=== PATIENT | female | born 1945 | race Caucasian/White ===

== ENCOUNTER 2020-06-23 17:44 | Inpatient (IN) ==
[2020-06-23 22:27] LABS: ABG Base Excess -2.8 MMOL/L (-2.5-2.5); ABG HCO3 22.1 MMOL/L (20-26); ABG Oxygen Saturation 97.3 % (95-100); ABG PCO2 36.5 MM HG (35-48); ABG PH 7.385 (7.35-7.45); ABG PO2 95.2 MM HG (80-95); ABG TCO2 20.1 MMOL/L (23-27)
[2020-06-23] MEDS ORDERED: DEXTROSE 50% 25 GM/50 ML VIAL IV PRN (22:38)
[2020-06-23 22:47] LABS: Bacteria,Urine Occasional /HPF (Few); Bilirubin,Urine Negative (Negative); Blood, Urine Moderate mg/dL (Negative); Glucose,Urine (UA) Negative (Negative); Hyaline Casts,Urine 13 /LPF (0-3); Ketones,Urine Negative (Negative); Mucus,Urine Occasional /LPF (Occasional); Nitrite,Urine Negative (Negative); Protein,Urine 100 MG/DL; RBC,Urine 35 /HPF (0-4); Urine Appearance CLEAR (Clear); Urine Color Straw (Yellow); Urine Specific Gravity 1.008 (1.001-1.035); Urine Urobilinogen < 2.0 EU/DL (0.2-1.0); WBC,Urine 5 /HPF (0-6)
[2020-06-23] MEDS: dilTIAZem Drip 125 MG/125 ML PREMIX IV SCH (22:55)
[2020-06-23] MEDS ORDERED: cefTRIAXone 1,000 MG in SYRINGE 1 EACH IV SCH (23:00)
[2020-06-23] MEDS ORDERED: PANTOPRAZOLE 40 MG VIAL IV ONE (23:19)
[2020-06-23] MEDS ORDERED: hydrALAZINE 20 MG/1 ML VIAL IV ONE (23:20)
[2020-06-23] MEDS: SODIUM CHLORIDE 0.9% 1,000 ML IV SCH (23:21)
[2020-06-23] MEDS ORDERED: AZITHROMYCIN INJ 500 MG in SODIUM CHLORIDE 0.9% 250 ML IV SCH (23:30)
[2020-06-23] MEDS ORDERED: MORPHINE 4 MG/1 ML VIAL IV ONE (23:38)
[2020-06-23 23:57] LABS: Basophils % 0.2 % (0.0-0.8); Hematocrit 29.7 VOL% (35.7-47.0); Hemoglobin 9.4 GM/DL (12.0-16.0); Immature Granulocytes % 0.9 %; Immature Granulocytes Absolute 0.14 #; Lymphocytes # 1.4 10*3/uL (1.4-4.0); Lymphocytes % 8.7 % (21.3-54.2); Mean Corpuscular HGB Conc 31.6 GM/DL (32-36); Mean Corpuscular Volume 88.7 FL (87-102); Mean Platelet Volume 10.6 FL (9.6-12.0); Monocytes % 7.4 % (1.7-12.7); NRBC # 0.02 10*3/uL; Neutrophils % 82.8 % (38.7-73.9); Platelet Count 285 T/CUMM (130-400); Red Blood Count 3.35 MC/CUMM (3.8-5.5); Red Cell Distribution Width 15.8 % (9.3-17.3); White Blood Count 16.2 T/CUMM (4-12)
[2020-06-24 00:21] LABS: Albumin 3.6 G/DL (3.4-5.0); Bilirubin,Total 0.4 MG/DL (0.2-1.0); Calcium 9.3 MG/DL (8.5-10.1); Osmolality,Calculated 295.1 MOS/KG (273-304)
[2020-06-24] MEDS: ALBUTEROL/IPRATROPIUM 3 ML NEB RESP TX SCH ×4 (00:48→19:42)
[2020-06-24 02:07] LABS: Basophils % 0.2 % (0.0-0.8); Hematocrit 27.6 VOL% (35.7-47.0); Hemoglobin 8.5 GM/DL (12.0-16.0); Immature Granulocytes % 0.6 %; Immature Granulocytes Absolute 0.08 #; Lymphocytes # 1.2 10*3/uL (1.4-4.0); Lymphocytes % 9.1 % (21.3-54.2); Mean Corpuscular HGB Conc 30.8 GM/DL (32-36); Mean Corpuscular Volume 90.2 FL (87-102); Mean Platelet Volume 10.8 FL (9.6-12.0); NRBC # 0.02 10*3/uL; Neutrophils % 82.1 % (38.7-73.9); Platelet Count 247 T/CUMM (130-400); Red Blood Count 3.06 MC/CUMM (3.8-5.5); Red Cell Distribution Width 15.7 % (9.3-17.3); White Blood Count 12.9 T/CUMM (4-12)
[2020-06-24 02:21] LABS: Albumin 3.2 G/DL (3.4-5.0); Bilirubin,Total 0.4 MG/DL (0.2-1.0); Calcium 8.8 MG/DL (8.5-10.1); Osmolality,Calculated 293.1 MOS/KG (273-304); Total Protein 6.2 G/DL (6.4-8.3)
[2020-06-24] MEDS: dilTIAZem Drip 125 MG/125 ML PREMIX IV SCH (07:00)
[2020-06-24] MEDS: INSULIN LISPRO 100 UNIT/ML SUBCUT SCH ×4 (08:07→20:52)
[2020-06-24] MEDS: SODIUM CHLORIDE 0.9% 1,000 ML IV SCH ×2 (09:15→20:44)
[2020-06-24] MEDS: PANTOPRAZOLE 40 MG VIAL IV SCH (10:30)
[2020-06-24] MEDS ORDERED: DIGOXIN 0.5 MG/2 ML AMP IV ONE ×2 (11:15→12:15)
[2020-06-24] MEDS: APIXABAN 5 MG TABLET PO SCH ×2 (11:40→20:44)
[2020-06-24] MEDS: AZITHROMYCIN 250 MG TABLET PO SCH (11:57)
[2020-06-24] MEDS: DILTIAZEM CD 120 MG CAPSULE PO SCH ×2 (11:57→20:44)
[2020-06-24] MEDS: ONDANSETRON 4 MG/2 ML VIAL IV PRN (13:50)
[2020-06-24] MEDS: MORPHINE 4 MG/1 ML VIAL IV PRN ×3 (13:50→20:47)
[2020-06-24] MEDS: cefTRIAXone 1,000 MG in SYRINGE 1 EACH IV SCH (14:04)
[2020-06-24] MEDS ORDERED: OXYMETAZOLINE 0.05% NASAL SPRAY 15 ML BOTTLE BOTH NARES PRN (17:13)
[2020-06-24] MEDS: diphenhydrAMINE 50 MG/1 ML VIAL IV PRN (20:20)
[2020-06-25] MEDS: MORPHINE 4 MG/1 ML VIAL IV PRN ×4 (02:04→19:30)
[2020-06-25] MEDS: ONDANSETRON 4 MG/2 ML VIAL IV PRN ×3 (02:05→21:13)
[2020-06-25 04:04] LABS: ABG Base Excess -2.3 MMOL/L (-2.5-2.5); ABG HCO3 22.5 MMOL/L (20-26); ABG Oxygen Saturation 98.4 % (95-100); ABG PCO2 51.9 MM HG (35-48); ABG PH 7.285 (7.35-7.45); ABG TCO2 23.1 MMOL/L (23-27); Allen Test Positive; Pt O2 Delivery Device CPAP
[2020-06-25 06:01] LABS: Basophils # 0.1 10*3/uL (0.0-0.2); Basophils % 0.6 % (0.0-0.8); Eosinophils # 0.1 10*3/uL (0.0-0.87); Eosinophils % 0.4 % (0.00-10.9); Hematocrit 31.8 VOL% (35.7-47.0); Hemoglobin 9.5 GM/DL (12.0-16.0); Immature Granulocytes % 0.9 %; Immature Granulocytes Absolute 0.11 #; Lymphocytes # 1.2 10*3/uL (1.4-4.0); Lymphocytes % 9.4 % (21.3-54.2); Mean Corpuscular HGB Conc 29.9 GM/DL (32-36); Mean Corpuscular Volume 93.3 FL (87-102); Monocytes % 6.8 % (1.7-12.7); NRBC # 0.02 10*3/uL; Neutrophils % 81.9 % (38.7-73.9); Platelet Count 269 T/CUMM (130-400); Red Blood Count 3.41 MC/CUMM (3.8-5.5); Red Cell Distribution Width 15.9 % (9.3-17.3); White Blood Count 12.7 T/CUMM (4-12)
[2020-06-25] MEDS: ALBUTEROL/IPRATROPIUM 3 ML NEB RESP TX SCH ×4 (06:05→19:19)
[2020-06-25 06:25] LABS: Calcium 9.3 MG/DL (8.5-10.1); Osmolality,Calculated 290.8 MOS/KG (273-304)
[2020-06-25] MEDS: SODIUM CHLORIDE 0.9% 1,000 ML IV SCH ×3 (07:17→19:59)
[2020-06-25] MEDS: INSULIN LISPRO 100 UNIT/ML SUBCUT SCH ×4 (07:39→21:06)
[2020-06-25] MEDS: DILTIAZEM CD 120 MG CAPSULE PO SCH ×2 (08:05→20:17)
[2020-06-25] MEDS: AZITHROMYCIN 250 MG TABLET PO SCH (08:05)
[2020-06-25] MEDS: APIXABAN 5 MG TABLET PO SCH ×2 (08:05→20:17)
[2020-06-25] MEDS: PANTOPRAZOLE 40 MG VIAL IV SCH (08:08)
[2020-06-25] MEDS ORDERED: carvediloL 6.25 MG TABLET PO SCH (09:00)
[2020-06-25] MEDS: dilTIAZem Drip 125 MG/125 ML PREMIX IV SCH (09:48)
[2020-06-25] MEDS: cefTRIAXone 1,000 MG in SYRINGE 1 EACH IV SCH (13:18)
[2020-06-25] MEDS: diphenhydrAMINE 50 MG/1 ML VIAL IV PRN ×2 (13:37→20:17)
[2020-06-25] MEDS: carvediloL 12.5 MG TABLET PO SCH (20:18)
[2020-06-26] MEDS: dilTIAZem Drip 125 MG/125 ML PREMIX IV SCH (00:42)
[2020-06-26] MEDS: MORPHINE 4 MG/1 ML VIAL IV PRN ×2 (00:42→07:59)
[2020-06-26] MEDS: ALBUTEROL/IPRATROPIUM 3 ML NEB RESP TX SCH ×4 (02:14→19:36)
[2020-06-26] MEDS: diphenhydrAMINE 50 MG/1 ML VIAL IV PRN (02:24)
[2020-06-26] MEDS: ONDANSETRON 4 MG/2 ML VIAL IV PRN (02:24)
[2020-06-26 03:51] LABS: ABG Base Excess -2.2 MMOL/L (-2.5-2.5); ABG HCO3 23.7 MMOL/L (20-26); ABG Oxygen Saturation 90.7 % (95-100); ABG PCO2 45.6 MM HG (35-48); ABG PH 7.333 (7.35-7.45); ABG PO2 62.5 MM HG (80-95); ABG TCO2 25.1 MMOL/L (23-27); Allen Test Positive; Pt O2 Delivery Device CPAP
[2020-06-26 04:20] LABS: Basophils # 0.1 10*3/uL (0.0-0.2); Basophils % 0.6 % (0.0-0.8); Eosinophils # 0.1 10*3/uL (0.0-0.87); Eosinophils % 1.3 % (0.00-10.9); Hematocrit 31.1 VOL% (35.7-47.0); Hemoglobin 9.4 GM/DL (12.0-16.0); Immature Granulocytes % 0.7 %; Immature Granulocytes Absolute 0.07 #; Lymphocytes % 10.2 % (21.3-54.2); Mean Corpuscular HGB Conc 30.2 GM/DL (32-36); Mean Corpuscular Volume 92.6 FL (87-102); Mean Platelet Volume 10.2 FL (9.6-12.0); Monocytes % 5.1 % (1.7-12.7); Neutrophils % 82.1 % (38.7-73.9); Platelet Count 270 T/CUMM (130-400); Red Blood Count 3.36 MC/CUMM (3.8-5.5); Red Cell Distribution Width 15.6 % (9.3-17.3); White Blood Count 9.6 T/CUMM (4-12)
[2020-06-26 04:39] LABS: Albumin 2.6 G/DL (3.4-5.0); Bilirubin,Total 0.4 MG/DL (0.2-1.0); Ferritin 72.4 ng/ml (8-252); Osmolality,Calculated 288.8 MOS/KG (273-304); Total Protein 6.1 G/DL (6.4-8.3)
[2020-06-26] MEDS: APIXABAN 5 MG TABLET PO SCH ×2 (08:01→20:20)
[2020-06-26] MEDS: DILTIAZEM CD 120 MG CAPSULE PO SCH ×2 (08:04→20:20)
[2020-06-26] MEDS: INSULIN LISPRO 100 UNIT/ML SUBCUT SCH ×4 (08:05→21:41)
[2020-06-26] MEDS: AZITHROMYCIN 250 MG TABLET PO SCH (08:05)
[2020-06-26] MEDS: carvediloL 12.5 MG TABLET PO SCH ×2 (08:05→20:20)
[2020-06-26] MEDS: PANTOPRAZOLE 40 MG TABLET PO SCH (08:05)
[2020-06-26] MEDS ORDERED: FUROSEMIDE 40 MG/4 ML VIAL IV ONE (09:29)
[2020-06-26] MEDS: ALPRAZolam 0.25 MG TABLET PO PRN (11:15)
[2020-06-26] MEDS: methylPREDNISolone SOD SUC 40 MG/1 ML VIAL IV SCH ×2 (13:07→20:21)
[2020-06-26] MEDS: cefTRIAXone 1,000 MG in SYRINGE 1 EACH IV SCH (15:30)
[2020-06-26] MEDS ORDERED: hydrALAZINE 20 MG/1 ML VIAL IV PRN (17:10)
[2020-06-26] MEDS: ASCORBIC ACID 500 MG TABLET PO SCH (20:20)
[2020-06-26] MEDS: SODIUM CHLORIDE 0.9% 1,000 ML IV SCH (21:42)
[2020-06-27] MEDS: ALBUTEROL/IPRATROPIUM 3 ML NEB RESP TX SCH ×4 (01:22→19:15)
[2020-06-27 03:27] LABS: Basophils % 0.4 % (0.0-0.8); Hematocrit 32.3 VOL% (35.7-47.0); Hemoglobin 9.9 GM/DL (12.0-16.0); Immature Granulocytes % 0.8 %; Immature Granulocytes Absolute 0.04 #; Lymphocytes # 0.5 10*3/uL (1.4-4.0); Lymphocytes % 9.8 % (21.3-54.2); Mean Corpuscular HGB Conc 30.7 GM/DL (32-36); Mean Corpuscular Volume 89.5 FL (87-102); Mean Platelet Volume 10.4 FL (9.6-12.0); Platelet Count 313 T/CUMM (130-400); Red Blood Count 3.61 MC/CUMM (3.8-5.5); Red Cell Distribution Width 14.8 % (9.3-17.3); White Blood Count 5.2 T/CUMM (4-12)
[2020-06-27 03:45] LABS: Calcium 8.9 MG/DL (8.5-10.1); Osmolality,Calculated 295.1 MOS/KG (273-304)
[2020-06-27] MEDS: ALPRAZolam 0.25 MG TABLET PO PRN ×2 (04:19→20:45)
[2020-06-27] MEDS: methylPREDNISolone SOD SUC 40 MG/1 ML VIAL IV SCH ×2 (04:20→11:01)
[2020-06-27 05:16] LABS: ABG Base Excess -0.7 MMOL/L (-2.5-2.5); ABG HCO3 25.1 MMOL/L (20-26); ABG Oxygen Saturation 89.8 % (95-100); ABG PH 7.354 (7.35-7.45); ABG PO2 62.1 MM HG (80-95); ABG TCO2 26.5 MMOL/L (23-27); Allen Test Positive
[2020-06-27] MEDS: AZITHROMYCIN 250 MG TABLET PO SCH (08:44)
[2020-06-27] MEDS: carvediloL 12.5 MG TABLET PO SCH ×2 (08:44→20:45)
[2020-06-27] MEDS: PANTOPRAZOLE 40 MG TABLET PO SCH (08:44)
[2020-06-27] MEDS: INSULIN LISPRO 100 UNIT/ML SUBCUT SCH ×4 (08:44→21:38)
[2020-06-27] MEDS: ASCORBIC ACID 500 MG TABLET PO SCH ×2 (08:44→20:46)
[2020-06-27] MEDS: APIXABAN 5 MG TABLET PO SCH ×2 (08:44→20:45)
[2020-06-27] MEDS: DILTIAZEM CD 120 MG CAPSULE PO SCH ×2 (08:45→20:46)
[2020-06-27] MEDS ORDERED: DOXEPIN 10 MG PO SCH (09:15)
[2020-06-27] MEDS: SERTRALINE 25 MG TABLET PO SCH (10:57)
[2020-06-27] MEDS: diphenhydrAMINE 50 MG/1 ML VIAL IV PRN (11:07)
[2020-06-27] MEDS: cefTRIAXone 1,000 MG in SYRINGE 1 EACH IV SCH (13:36)
[2020-06-27] MEDS: FUROSEMIDE 40 MG TABLET PO SCH (16:04)
[2020-06-27] MEDS: SODIUM CHLORIDE 0.9% 1,000 ML IV SCH (16:04)
[2020-06-27] MEDS: DONEPEZIL 5 MG TABLET PO SCH (20:45)
[2020-06-28] MEDS: ALBUTEROL/IPRATROPIUM 3 ML NEB RESP TX SCH ×4 (01:07→20:01)
[2020-06-28] MEDS: methylPREDNISolone SOD SUC 40 MG/1 ML VIAL IV SCH ×2 (03:43→16:06)
[2020-06-28 04:49] LABS: Basophils % 0.1 % (0.0-0.8); Hematocrit 30.4 VOL% (35.7-47.0); Hemoglobin 9.6 GM/DL (12.0-16.0); Immature Granulocytes % 0.4 %; Immature Granulocytes Absolute 0.04 #; Lymphocytes # 0.6 10*3/uL (1.4-4.0); Lymphocytes % 6.7 % (21.3-54.2); Mean Corpuscular HGB Conc 31.6 GM/DL (32-36); Mean Corpuscular Volume 88.1 FL (87-102); Mean Platelet Volume 10.4 FL (9.6-12.0); Monocytes % 2.9 % (1.7-12.7); NRBC # 0.02 10*3/uL; Neutrophils % 89.9 % (38.7-73.9); Platelet Count 290 T/CUMM (130-400); Red Blood Count 3.45 MC/CUMM (3.8-5.5); Red Cell Distribution Width 14.7 % (9.3-17.3); White Blood Count 9.3 T/CUMM (4-12)
[2020-06-28 05:20] LABS: Calcium 8.5 MG/DL (8.5-10.1); Osmolality,Calculated 294.3 MOS/KG (273-304)
[2020-06-28] MEDS: INSULIN LISPRO 100 UNIT/ML SUBCUT SCH ×4 (08:48→21:14)
[2020-06-28] MEDS: ASCORBIC ACID 500 MG TABLET PO SCH ×2 (09:07→21:16)
[2020-06-28] MEDS: SERTRALINE 25 MG TABLET PO SCH (09:07)
[2020-06-28] MEDS: APIXABAN 5 MG TABLET PO SCH ×2 (09:08→21:15)
[2020-06-28] MEDS: DILTIAZEM CD 120 MG CAPSULE PO SCH ×2 (09:08→21:15)
[2020-06-28] MEDS: AZITHROMYCIN 250 MG TABLET PO SCH (09:08)
[2020-06-28] MEDS: carvediloL 12.5 MG TABLET PO SCH ×2 (09:08→21:15)
[2020-06-28] MEDS: PANTOPRAZOLE 40 MG TABLET PO SCH (09:08)
[2020-06-28] MEDS: FUROSEMIDE 40 MG TABLET PO SCH ×2 (09:09→16:06)
[2020-06-28] MEDS ORDERED: ISOSORBIDE MONONITRATE 60 MG TABLET PO SCH (10:00)
[2020-06-28] MEDS: cefTRIAXone 1,000 MG in SYRINGE 1 EACH IV SCH (12:18)
[2020-06-28] MEDS: SODIUM CHLORIDE 0.9% 1,000 ML IV SCH (16:06)
[2020-06-28] MEDS: DONEPEZIL 5 MG TABLET PO SCH (21:16)
[2020-06-29] MEDS: ALBUTEROL/IPRATROPIUM 3 ML NEB RESP TX SCH ×4 (01:39→19:18)
[2020-06-29 06:23] LABS: Basophils % 0.1 % (0.0-0.8); Hematocrit 36.7 VOL% (35.7-47.0); Hemoglobin 11.6 GM/DL (12.0-16.0); Immature Granulocytes % 1.2 %; Immature Granulocytes Absolute 0.14 #; Lymphocytes # 0.5 10*3/uL (1.4-4.0); Lymphocytes % 4.6 % (21.3-54.2); Mean Corpuscular HGB Conc 31.6 GM/DL (32-36); Mean Corpuscular Volume 87.2 FL (87-102); Mean Platelet Volume 10.8 FL (9.6-12.0); Monocytes % 2.5 % (1.7-12.7); NRBC # 0.02 10*3/uL; Neutrophils % 91.6 % (38.7-73.9); Platelet Count 364 T/CUMM (130-400); Red Blood Count 4.21 MC/CUMM (3.8-5.5); Red Cell Distribution Width 14.6 % (9.3-17.3); White Blood Count 11.3 T/CUMM (4-12)
[2020-06-29 06:47] LABS: Hypochromasia 1+; Lymphocytes 3 % (20-55); Microcytosis 1+; Ovalocytes Slight; Platelet Estimate Adequate; Segmented Neutrophils 95 % (50-85); Total Cells Counted 100
[2020-06-29 06:50] LABS: Calcium 9.2 MG/DL (8.5-10.1)
[2020-06-29 06:51] LABS: Albumin 2.5 G/DL (3.4-5.0); Bilirubin,Total 0.7 MG/DL (0.2-1.0); Calcium 9.1 MG/DL (8.5-10.1); Total Protein 5.8 G/DL (6.4-8.3)
[2020-06-29] MEDS: APIXABAN 5 MG TABLET PO SCH ×2 (08:49→21:52)
[2020-06-29] MEDS: PANTOPRAZOLE 40 MG TABLET PO SCH (08:49)
[2020-06-29] MEDS: carvediloL 12.5 MG TABLET PO SCH ×2 (08:49→21:52)
[2020-06-29] MEDS: AZITHROMYCIN 250 MG TABLET PO SCH (08:49)
[2020-06-29] MEDS: FUROSEMIDE 40 MG TABLET PO SCH ×2 (08:50→15:48)
[2020-06-29] MEDS: DILTIAZEM CD 120 MG CAPSULE PO SCH ×2 (08:50→21:52)
[2020-06-29] MEDS: SERTRALINE 25 MG TABLET PO SCH (08:50)
[2020-06-29] MEDS: ASCORBIC ACID 500 MG TABLET PO SCH ×2 (08:50→21:52)
[2020-06-29] MEDS: ISOSORBIDE MONONITRATE 60 MG TABLET PO SCH (08:50)
[2020-06-29] MEDS: methylPREDNISolone SOD SUC 40 MG/1 ML VIAL IV SCH ×2 (08:51→21:52)
[2020-06-29] MEDS: INSULIN LISPRO 100 UNIT/ML SUBCUT SCH ×4 (08:55→21:52)
[2020-06-29] MEDS: ONDANSETRON 4 MG/2 ML VIAL IV PRN (09:00)
[2020-06-29] MEDS: cefTRIAXone 1,000 MG in SYRINGE 1 EACH IV SCH (12:30)
[2020-06-29] MEDS: MAGNESIUM HYDROXIDE SUSP 30 ML UDCUP PO PRN (14:22)
[2020-06-29] MEDS: SODIUM CHLORIDE 0.9% 1,000 ML IV SCH (14:24)
[2020-06-29] MEDS: MORPHINE 4 MG/1 ML VIAL IV PRN ×2 (14:54→21:52)
[2020-06-29] MEDS: diphenhydrAMINE 50 MG/1 ML VIAL IV PRN ×2 (17:25→23:52)
[2020-06-29] MEDS: DONEPEZIL 5 MG TABLET PO SCH (21:52)
[2020-06-30] MEDS: ALBUTEROL/IPRATROPIUM 3 ML NEB RESP TX SCH ×4 (00:06→20:12)
[2020-06-30 05:15] LABS: Hematocrit 32.9 VOL% (35.7-47.0); Hemoglobin 10.1 GM/DL (12.0-16.0); Immature Granulocytes Absolute 0.21 #; Lymphocytes # 0.6 10*3/uL (1.4-4.0); Lymphocytes % 5.2 % (21.3-54.2); Mean Corpuscular HGB Conc 30.7 GM/DL (32-36); Mean Corpuscular Volume 88.4 FL (87-102); Mean Platelet Volume 10.9 FL (9.6-12.0); Monocytes % 2.1 % (1.7-12.7); Neutrophils % 90.7 % (38.7-73.9); Platelet Count 355 T/CUMM (130-400); Red Blood Count 3.72 MC/CUMM (3.8-5.5); Red Cell Distribution Width 14.5 % (9.3-17.3); White Blood Count 10.7 T/CUMM (4-12)
[2020-06-30 05:26] LABS: Calcium 8.4 MG/DL (8.5-10.1); Osmolality,Calculated 298.5 MOS/KG (273-304)
[2020-06-30 05:42] LABS: Band Neutrophils 1 % (0-10); Hypochromasia Slight; Lymphocytes 7 % (20-55); Ovalocytes Slight; Platelet Estimate Adequate; Segmented Neutrophils 92 % (50-85); Total Cells Counted 100
[2020-06-30 05:43] LABS: Microcytosis 1+
[2020-06-30] MEDS: FUROSEMIDE 40 MG TABLET PO SCH ×2 (09:28→16:44)
[2020-06-30] MEDS: ISOSORBIDE MONONITRATE 60 MG TABLET PO SCH (09:28)
[2020-06-30] MEDS: APIXABAN 5 MG TABLET PO SCH ×2 (09:28→21:29)
[2020-06-30] MEDS: lisinopriL 10 MG TABLET PO SCH (09:28)
[2020-06-30] MEDS: ACETAMINOPHEN 325 MG TABLET PO PRN (09:28)
[2020-06-30] MEDS: carvediloL 12.5 MG TABLET PO SCH ×2 (09:28→21:28)
[2020-06-30] MEDS: INSULIN LISPRO 100 UNIT/ML SUBCUT SCH ×4 (09:28→21:27)
[2020-06-30] MEDS: DILTIAZEM CD 120 MG CAPSULE PO SCH ×2 (09:28→21:28)
[2020-06-30] MEDS: methylPREDNISolone SOD SUC 40 MG/1 ML VIAL IV SCH (09:29)
[2020-06-30] MEDS: SERTRALINE 25 MG TABLET PO SCH (09:29)
[2020-06-30] MEDS: AZITHROMYCIN 250 MG TABLET PO SCH (09:29)
[2020-06-30] MEDS: PANTOPRAZOLE 40 MG TABLET PO SCH (09:29)
[2020-06-30] MEDS: ASCORBIC ACID 500 MG TABLET PO SCH ×2 (09:29→21:29)
[2020-06-30] MEDS: cefTRIAXone 1,000 MG in SYRINGE 1 EACH IV SCH (13:35)
[2020-06-30] MEDS: SODIUM CHLORIDE 0.9% 1,000 ML IV SCH (14:16)
[2020-06-30] MEDS: MAGNESIUM HYDROXIDE SUSP 30 ML UDCUP PO PRN (14:17)
[2020-06-30] MEDS: diphenhydrAMINE 50 MG/1 ML VIAL IV PRN (21:27)
[2020-06-30] MEDS: ALPRAZolam 0.25 MG TABLET PO PRN (21:28)
[2020-06-30] MEDS: DONEPEZIL 5 MG TABLET PO SCH (21:29)
[2020-07-01] MEDS: ALBUTEROL/IPRATROPIUM 3 ML NEB RESP TX SCH ×4 (01:35→19:31)
[2020-07-01 06:22] LABS: Basophils % 0.2 % (0.0-0.8); Eosinophils % 0.2 % (0.00-10.9); Hematocrit 35.5 VOL% (35.7-47.0); Immature Granulocytes % 1.9 %; Immature Granulocytes Absolute 0.24 #; Lymphocytes # 1.6 10*3/uL (1.4-4.0); Lymphocytes % 12.3 % (21.3-54.2); Mean Corpuscular Volume 88.1 FL (87-102); Mean Platelet Volume 11.4 FL (9.6-12.0); Neutrophils % 77.4 % (38.7-73.9); Platelet Count 403 T/CUMM (130-400); Red Blood Count 4.03 MC/CUMM (3.8-5.5); Red Cell Distribution Width 14.6 % (9.3-17.3); White Blood Count 12.9 T/CUMM (4-12)
[2020-07-01 06:48] LABS: Calcium 8.5 MG/DL (8.5-10.1); Osmolality,Calculated 293.4 MOS/KG (273-304)
[2020-07-01] MEDS: INSULIN LISPRO 100 UNIT/ML SUBCUT SCH ×4 (08:57→20:53)
[2020-07-01] MEDS: ISOSORBIDE MONONITRATE 60 MG TABLET PO SCH (08:58)
[2020-07-01] MEDS: APIXABAN 5 MG TABLET PO SCH ×2 (08:58→20:54)
[2020-07-01] MEDS: FUROSEMIDE 40 MG TABLET PO SCH ×2 (08:58→17:32)
[2020-07-01] MEDS: carvediloL 12.5 MG TABLET PO SCH ×2 (08:59→20:54)
[2020-07-01] MEDS: lisinopriL 10 MG TABLET PO SCH (08:59)
[2020-07-01] MEDS: PANTOPRAZOLE 40 MG TABLET PO SCH (08:59)
[2020-07-01] MEDS: predniSONE 20 MG TABLET PO SCH (08:59)
[2020-07-01] MEDS: SERTRALINE 25 MG TABLET PO SCH (08:59)
[2020-07-01] MEDS: AZITHROMYCIN 250 MG TABLET PO SCH (08:59)
[2020-07-01] MEDS: ASCORBIC ACID 500 MG TABLET PO SCH ×2 (08:59→20:54)
[2020-07-01] MEDS: DILTIAZEM CD 120 MG CAPSULE PO SCH ×2 (09:00→20:54)
[2020-07-01] MEDS: cefTRIAXone 1,000 MG in SYRINGE 1 EACH IV SCH (14:55)
[2020-07-01] MEDS: ACETAMINOPHEN 325 MG TABLET PO PRN (14:59)
[2020-07-01] MEDS: SODIUM CHLORIDE 0.9% 1,000 ML IV SCH (15:01)
[2020-07-01] MEDS: ONDANSETRON 4 MG/2 ML VIAL IV PRN (18:23)
[2020-07-01] MEDS: DONEPEZIL 5 MG TABLET PO SCH (20:54)
[2020-07-01] MEDS: ALPRAZolam 0.25 MG TABLET PO PRN (20:54)
[2020-07-01] MEDS: diphenhydrAMINE 50 MG/1 ML VIAL IV PRN (21:57)
[2020-07-02] MEDS: ALBUTEROL/IPRATROPIUM 3 ML NEB RESP TX SCH ×3 (02:18→13:10)
[2020-07-02 05:21] LABS: Basophils % 0.1 % (0.0-0.8); Eosinophils % 0.2 % (0.00-10.9); Hematocrit 34.6 VOL% (35.7-47.0); Hemoglobin 10.9 GM/DL (12.0-16.0); Immature Granulocytes % 1.5 %; Immature Granulocytes Absolute 0.19 #; Lymphocytes # 1.3 10*3/uL (1.4-4.0); Lymphocytes % 10.2 % (21.3-54.2); Mean Corpuscular HGB Conc 31.5 GM/DL (32-36); Mean Corpuscular Volume 88.7 FL (87-102); Mean Platelet Volume 10.9 FL (9.6-12.0); Monocytes % 7.1 % (1.7-12.7); Neutrophils % 80.9 % (38.7-73.9); Platelet Count 363 T/CUMM (130-400); White Blood Count 12.7 T/CUMM (4-12)
[2020-07-02 05:34] LABS: Calcium 8.4 MG/DL (8.5-10.1); Osmolality,Calculated 295.4 MOS/KG (273-304)
[2020-07-02] MEDS: carvediloL 12.5 MG TABLET PO SCH (09:08)
[2020-07-02] MEDS: PANTOPRAZOLE 40 MG TABLET PO SCH (09:08)
[2020-07-02] MEDS: ASCORBIC ACID 500 MG TABLET PO SCH (09:09)
[2020-07-02] MEDS: predniSONE 20 MG TABLET PO SCH (09:09)
[2020-07-02] MEDS: SERTRALINE 25 MG TABLET PO SCH (09:09)
[2020-07-02] MEDS: DILTIAZEM CD 120 MG CAPSULE PO SCH (09:09)
[2020-07-02] MEDS: ISOSORBIDE MONONITRATE 60 MG TABLET PO SCH (09:09)
[2020-07-02] MEDS: APIXABAN 5 MG TABLET PO SCH (09:10)
[2020-07-02] MEDS: FUROSEMIDE 40 MG TABLET PO SCH ×2 (09:10→16:59)
[2020-07-02] MEDS: lisinopriL 10 MG TABLET PO SCH (09:10)
[2020-07-02] MEDS: INSULIN LISPRO 100 UNIT/ML SUBCUT SCH ×3 (09:11→16:58)
[2020-07-02 16:21] VITALS: BP 123/57
[2020-07-02] MEDS: SODIUM CHLORIDE 0.9% 1,000 ML IV SCH (16:58)
[2020-07-03] MEDS ORDERED: MULTIVITAMIN (CENTRUM) TABLET PO SCH (09:00)
== END 2020-07-02 18:08 | disposition home health service (06) | DRG 193 ==
LOC: N.CC 21:43 → SUATTDRO 21:43 → N.TELES 06-28 06:57
PROVIDERS: ADMIT Internal Medicine; ATTEND Internal Medicine